=== PATIENT | female | born 1960 | race Caucasian/White ===

== ENCOUNTER → 2017-09-13 | Day surgery (SDC) | payer OTHER ==
[2017-09-12 08:41] VITALS: BMI 25.4
[~2017-09-13] MED LIST: LACTATED RINGERS 1,000 ML IV SCH; LIDOCAINE 1% INJ 10MG/ML (20 ML MDV) ONE; PROPOFOL 10 MG/ML 20 ML VIAL IV ONE
[2017-09-13 07:38] LABS: Glucose,Whole Blood 118 mg/dL (75-99)
[2017-09-13 07:39] VITALS: TEMP 98.7
--- NOTE | 2017-09-13 09:26 | P.PCN ---
Date of Procedure: 09/13/17 Procedure(s) Performed: Procedure: 1. Esophagogastroduodenoscopy and biopsy. 2. Total colonoscopy. Preoperative diagnosis: Early satiety and unexplained weight loss. Postoperative diagnoses: 1. Small sliding hiatal hernia with no obvious esophagitis or complicated reflux disease. 2. Mild antral gastritis and minimal duodenitis. 3. Multiple biopsies obtained from the duodenum, antrum and esophagus. 4. Sigmoid diverticulosis, otherwise, exam to the terminal ileum within normal limits. Preparation: HalfLytely prep. Sedation: Was provided by anesthesia. Brief clinical history: The patient is a 57-year-old female who is referred for this evaluation because of unexplained weight loss since March of last year. This weight loss has been accelerated since July of this year for a total loss of around 40 pounds. She has early satiety and fullness feeling but no other GI complaints or bleeding. She had a colonoscopy more than 10 years ago. Procedure: With the patient on her left lateral decubitus position and after informed consent and adequate sedation, I passed the Olympus-GIF 160 video upper endoscope through the cricopharyngeus down the esophagus. GE junction was around 34 cm from the incisors and there was a small sliding hiatal hernia but no obvious esophagitis or complicated reflux disease. The endoscope was then passed into the stomach which was insufflated with air and inspected in detail including the retroflex view in the cardia. There was some mottling and erythema in the antrum but no ulcers or erosions. Pyloric channel did not show any ulcers. Duodenal bulb showed minimal erythema. Post bulbar area and descending duodenum appeared within normal limits. I obtained multiple biopsies from the duodenum, antrum and esophagus then the endoscope was withdrawn and I proceeded with the colonoscopy. Perianal area did not show any fissures or fistulas. There were no masses felt on digital rectal examination. The Olympus CFQ 160L video colonoscope was then inserted in the rectum in the usual fashion and advanced to the cecum. I intubated the ileocecal valve and examined the terminal ileum. There were a few scattered sigmoid diverticular orifices noted in the sigmoid but there was no evidence of acute diverticulitis or strictures. The mucosa in the colon and terminal ileum appeared healthy. No polyps or tumors or other pathology was noted. I retroflexed the endoscope in the rectum before the endoscope was withdrawn. The patient tolerated the procedure well. Plan: The patient was reassured. Will await biopsy results. She will follow- up with you as planned and further plans will be made based on her course and biopsy results. We would be happy to see her in the office of her symptoms persist.
[2017-09-13 09:29] VITALS: RESP 16
[2017-09-13 09:38] VITALS: BP 117/68; PULSE 93
== END ==
LOC: ORWHC2ENDO 07:16
DX: K29.50 Unspecified chronic gastritis without bleeding (principal); K20.9 Esophagitis, unspecified; K44.9 Diaphragmatic hernia without obstruction or gangrene; K29.80 Duodenitis without bleeding; K57.30 Diverticulosis of large intestine without perforation or abscess without bleeding; R68.81 Early satiety; R63.4 Abnormal weight loss; E11.9 Type 2 diabetes mellitus without complications; I10 Essential (primary) hypertension; M19.90 Unspecified osteoarthritis, unspecified site; E78.5 Hyperlipidemia, unspecified; Z79.84 Long term (current) use of oral hypoglycemic drugs; Z79.899 Other long term (current) drug therapy; Z79.891 Long term (current) use of opiate analgesic
CPT/HCPCS: 88305; 45378; 43239; J2001; J2704

== ENCOUNTER → 2017-09-24 | Outpatient (CLI) | payer OTHER ==
--- NOTE | 2017-09-24 18:53 | CT ---
EXAMINATION TYPE: CT lumbar spine wo con DATE OF EXAM: 09/24/2017 6:01 PM COMPARISON: NONE HISTORY: Bilateral leg pain CT DLP: 431.2 mGycm Automated exposure control for dose reduction was used. Unenhanced CT of the lumbar spine was performed. Bone and soft tissue window settings are submitted as well as coronal and sagittal reconstructions. The lumbar vertebra have fairly normal alignment. There is mild narrowing of the disc spaces. There i s anterior spurring at L3-4 L4-5 and L5-S1. There is mild multilevel facet arthropathy. There is no c ompression fracture. I do not see any significant spinal stenosis. There is some lateral recess steno sis due to ligamentum flavum thickening at L4-5. The sacroiliac joints are intact. There is no lumbar paraspinal mass. IMPRESSION: Mild multilevel spondylosis. Mild lateral recess stenosis at L4-5 due to facet arthropathy. No fractu re.
== END | disposition home or self-care (01) ==
LOC: RADCTMAIN 17:46
PROVIDERS: ATTEND Family Medicine
DX: M48.061 Spinal stenosis, lumbar region without neurogenic claudication (principal); M47.26 Other spondylosis with radiculopathy, lumbar region
CPT/HCPCS: 72131

== ENCOUNTER → 2017-11-16 | Outpatient (CLI) | payer OTHER ==
--- NOTE | 2017-11-19 11:17 | MM ---
Reason for exam: screening (asymptomatic). History: Patient is postmenopausal and is nulliparous. Physical Findings: A clinical breast exam by your physician is recommended on an annual basis and results should be correlated with mammographic findings. MG 3D Screening Mammo W/Cad Bilateral CC and MLO view(s) were taken. The breast tissue is heterogeneously dense. This may lower the sensitivity of mammography. There is a 4mm right upper outer quadrant mass at middle depth (3d CC view 25/33 and MLO view 10/35). ASSESSMENT: Incomplete: need additional imaging evaluation, BI-RAD 0 RECOMMENDATION: Special view mammogram of the right breast. If lesion persists on supplemental views, image directed ultrasound is recommended. [facility] will attempt to contact patient to return for supplemental views and ultrasound if indicated.
== END | disposition home or self-care (01) ==
LOC: RADMAMWWP 16:26
PROVIDERS: ATTEND Family Medicine
DX: Z12.31 Encounter for screening mammogram for malignant neoplasm of breast (principal)
CPT/HCPCS: 77063; 77067

== ENCOUNTER → 2017-11-29 | Outpatient (CLI) | payer OTHER ==
--- NOTE | 2017-11-29 09:17 | MM ---
Reason for exam: additional evaluation requested from abnormal screening. Last mammogram was performed less than 1 month ago. History: Patient is postmenopausal and is nulliparous. Physical Findings: Nurse did not find any significant physical abnormalities on exam. MG 3D Work Up W/Cad RT Spot compression CC, spot compression MLO, and ML view(s) were taken of the right breast. Prior study comparison: November 16, 2017, bilateral MG 3d screening mammo w/cad. No distinct lesion persists. These results were verbally communicated with the patient and result sheet given to the patient on 11/29/17. ASSESSMENT: Negative, BI-RAD 1 RECOMMENDATION: Return to routine screening mammogram schedule for both breasts.
== END | disposition home or self-care (01) ==
LOC: RADMAMWWP 07:54
PROVIDERS: ATTEND Family Medicine
DX: R92.8 Other abnormal and inconclusive findings on diagnostic imaging of breast (principal)
CPT/HCPCS: 77061; 77065

== ENCOUNTER → 2018-04-16 | Outpatient (CLI) | payer OTHER ==
--- NOTE | 2018-04-16 18:37 | ECHOF ---
Referral Reason:R01.1 Cardiac murmur MEASUREMENTS -------- HEIGHT: 162.6 cm WEIGHT: 61.2 kg BP: 120/70 RVIDd: 2.3 cm (< 3.3) IVSd: 0.9 cm (0.6 - 1.1) LVIDd: 3.2 cm (3.9 - 5.3) LVPWd: 1.0 cm (0.6 - 1.1) IVSs: 1.4 cm LVIDs: 1.6 cm LVPWs: 1.4 cm LA Diam: 2.3 cm (2.7 - 3.8) LAESV Index (A-L): 19.05 ml/m Ao Diam: 2.8 cm (2.0 - 3.7) AV Cusp: 1.7 cm (1.5 - 2.6) MV EXCURSION: 11.562 mm (> 18.000) MV EF SLOPE: 40 mm/s (70 - 150) EPSS: 0.4 cm MV E Ricardo: 0.79 m/s MV DecT: 265 ms MV A Ricardo: 0.87 m/s MV E/A Ratio: 0.91 FINDINGS -------- Sinus rhythm. This was a technically adequate study. The left ventricular size is normal. Left ventricular wall thickness is normal. Overall left vent ricular systolic function is normal with, an EF between 55 - 60 %. The right ventricle is normal in size. Normal LA size by volume 22+/-6 ml/m2. The right atrium is normal in size. Small muscular ventricular septal defect present. The aortic valve is trileaflet and appears structurally normal. The mitral valve is normal. There is trace to mild mitral regurgitation. The tricuspid valve appears structurally normal. The pulmonic valve was not well visualized. There is no pulmonic regurgitation present. The aortic root size is normal. Normal inferior vena cava with normal inspiratory collapse consistent with estimated right atrial pre ssure of 5 mmHg. There is no pericardial effusion. CONCLUSIONS -------- 1. Sinus rhythm. 2. This was a technically adequate study. 3. The left ventricular size is normal. 4. Left ventricular wall thickness is normal. 5. Overall left ventricular systolic function is normal with, an EF between 55 - 60 %. 6. Normal LA size by volume 22+/-6 ml/m2. 7. Small muscular ventricular septal defect present. 8. The aortic valve is trileaflet and appears structurally normal. 9. The mitral valve is normal. 10. There is trace to mild mitral regurgitation. 11. The tricuspid valve appears structurally normal. 12. The pulmonic valve was not well visualized. 13. There is no pulmonic regurgitation present. 14. The aortic root size is normal. 15. Normal inferior vena cava with normal inspiratory collapse consistent with estimated right atrial pressure of 5 mmHg. 16. There is no pericardial effusion. GLUER AND WEDGER: Georgia Kaur RDCS
== END | disposition home or self-care (01) ==
LOC: RADECHMAIN 14:02
PROVIDERS: ATTEND Family Medicine
DX: I34.0 Nonrheumatic mitral (valve) insufficiency (principal)
CPT/HCPCS: 93306

== ENCOUNTER → 2018-08-20 | Outpatient (CLI) | payer BC ==
[2018-08-20 16:40] LABS: Albumin/Globulin Ratio 1.74 (1.60-3.17); Anion Gap 6.2 mmol/L (4.00-12.00); Calcium 9.2 mg/dL (8.7-10.3); Carbon Dioxide 26.8 mmol/L (21.6-31.8); Globulin 2.3 g/dL (1.6-3.3); Potassium 4.3 mmol/L (3.5-5.5); Total Protein 6.3 g/dL (6.2-8.2)
== END ==
LOC: LABWHC1 08:00
PROVIDERS: ATTEND Physical Medicine & Rehabilitation
DX: M54.5 Low back pain (principal); M51.17 Intervertebral disc disorders with radiculopathy, lumbosacral region; M47.26 Other spondylosis with radiculopathy, lumbar region; M62.81 Muscle weakness (generalized); E11.41 Type 2 diabetes mellitus with diabetic mononeuropathy; E11.42 Type 2 diabetes mellitus with diabetic polyneuropathy; R20.2 Paresthesia of skin
CPT/HCPCS: 36415; 80053